=== PATIENT | male | born 1965 | race Caucasian/White ===

== ENCOUNTER 2017-08-20 12:49 | Emergency (ER) | payer SELFPAY ==
[~2017-08-20] VITALS: Ht 185.4 cm; Wt 80.0 kg
[2017-08-20 12:52] VITALS: BP 134/78; PULSE 89; RESP 18; TEMP 98.5; O2SAT 97
[2017-08-20 12:58] VITALS: BP 153/96; PULSE 89; RESP 20; O2SAT 100
[2017-08-20] MEDS ORDERED: SODIUM CHLOR 0.9% 1000 ML INJ 1,000 ML IV SCH (13:06)
[2017-08-20] MEDS ORDERED: PANTOPRAZOLE SODIUM 40 MG VIAL IVP ONE (13:15)
[2017-08-20] MEDS ORDERED: SODIUM CHLORIDE 0.9% FLUSH 10 ML FLUSH IV FLUSH PRN (13:15)
[2017-08-20] MEDS ORDERED: ONDANSETRON HCL 4 MG/2 ML VIAL IVP ONE (13:15)
--- NOTE | 2017-08-20 13:26 | PD ---
HPI Chief Complaint: Cardiac Complaint Time Seen by Provider: 12:55 Travel History International Travel<30 days: No Contact w/Intl Traveler<30days: No Traveled to known affect area: No History of Present Illness HPI 51-year-old male presents to the emergency department for evaluation of epigastric pain. Patient states he had a "lung infection" approximately 5-6 weeks ago. He states that since then, he has had intermittent stomach pain. He states usually will go away within a day or 2. However, this has been ongoing since , 6 days. He states that over the weekend, it was severe. He currently rates a 4/10 and states it is "aching". He states is diffuse, but worse in the epigastric region. He apparently went to a PA before coming here who did an EKG was concerned so he sent the patient to the emergency department. The patient denies any chest pain or shortness of breath to me. He states he does still have a cough from previous "lung infection". He states that time, he was put on an inhaler, steroids, antibiotic. He is not currently using the inhaler. He states it "ball my asthma back". He reports he has no chronic medical problems other than asthma and is currently taking no prescribed medications. She reports nausea and vomited once this weekend. He denies any diarrhea or constipation. No blood in his stool. He had denies any previous abdominal surgery. Severity is moderate. No exacerbating or alleviating symptoms. PFSH Past Medical History Medical History: Denies Significant Hx Diminished Hearing: No Tetanus Vaccination: < 5 Years ?: Not Past Surgical History Other Surgery: Yes (L hand) Social History Alcohol Use: No Tobacco Use: Yes Substance Use: No Allergies-Medications (Allergen,Severity, Reaction): Coded Allergies: meperidine (Verified Allergy, Unknown, 08/20/17) Reported Meds & Prescriptions Reported Meds & Active Scripts Active No Active Prescriptions or Reported Medications Review of Systems Except as stated in HPI: all other systems reviewed are Neg Physical Exam Narrative GENERAL: Well-nourished, well-developed male patient, afebrile. SKIN: Focused skin assessment warm/dry. HEAD: Normocephalic. Atraumatic. EYES: No scleral icterus. No injection or drainage. NECK: Supple, trachea midline. No JVD or lymphadenopathy. CARDIOVASCULAR: Regular rate and rhythm without murmurs, gallops, or rubs. RESPIRATORY: Breath sounds equal bilaterally. No accessory muscle use. Lungs sounds are clear to auscultation. GASTROINTESTINAL: Abdomen soft, and, nondistended. Patient has mild tenderness over the right lower quadrant, left upper quadrant, moderate tenderness over the epigastric region. MUSCULOSKELETAL: No cyanosis, or edema. BACK: Nontender without obvious deformity. No CVA tenderness. Data Data Last Documented VS Vital Signs Date Time Temp Pulse Resp B/P (MAP) Pulse Ox O2 Delivery O2 Flow Rate FiO2 08/20/17 12:58 89 20 153/96 (115) 100 08/20/17 12:52 98.5 Room Air Orders Orders Complete Blood Count With Diff (08/20/17 13:06) Comprehensive Metabolic Panel (08/20/17 13:06) Lipase (08/20/17 13:06) Prothrombin Time / Inr (Pt) (08/20/17 13:06) Act Partial Throm Time (Ptt) (08/20/17 13:06) Urinalysis - C+S If Indicated (08/20/17 13:06) Ct Abd/Pel W Iv Contrast(Rout) (08/20/17 13:06) Iv Access Insert/Monitor (08/20/17 13:06) Ecg Monitoring (08/20/17 13:06) Oximetry (08/20/17 13:06) Ondansetron Inj (Zofran Inj) (08/20/17 13:15) Pantoprazole Inj (Protonix Inj) (08/20/17 13:15) Sodium Chlor 0.9% 1000 Ml Inj (Ns 1000 M (08/20/17 13:06) Sodium Chloride 0.9% Flush (Ns Flush) (08/20/17 13:15) Electrocardiogram (08/20/17 13:06) Chest, Single Ap (08/20/17 13:06) Creatine Kinase (Cpk) (08/20/17 13:06) Troponin I (08/20/17 13:06) Iohexol 350 Inj (Omnipaque 350 Inj) (08/20/17 14:02) Us Testicles W Doppler (08/20/17 ) Mandatory Outpatient Referral (08/20/17 15:19) Labs Laboratory Tests Test 08/20/17 13:20 White Blood Count 10.6 TH/MM3 Red Blood Count 4.62 MIL/MM3 Hemoglobin 14.9 GM/DL Hematocrit 45.1 % Mean Corpuscular Volume 97.8 FL Mean Corpuscular Hemoglobin 32.2 PG Mean Corpuscular Hemoglobin Concent 32.9 % Red Cell Distribution Width 14.1 % Platelet Count 210 TH/MM3 Mean Platelet Volume 8.6 FL Neutrophils (%) (Auto) 78.2 % Lymphocytes (%) (Auto) 7.2 % Monocytes (%) (Auto) 13.9 % Eosinophils (%) (Auto) 0.3 % Basophils (%) (Auto) 0.4 % Neutrophils # (Auto) 8.3 TH/MM3 Lymphocytes # (Auto) 0.8 TH/MM3 Monocytes # (Auto) 1.5 TH/MM3 Eosinophils # (Auto) 0.0 TH/MM3 Basophils # (Auto) 0.0 TH/MM3 CBC Comment DIFF FINAL Differential Comment Prothrombin Time 11.4 SEC Prothromb Time International Ratio 1.0 RATIO Activated Partial Thromboplast Time 30.8 SEC Blood Urea Nitrogen 22 MG/DL Creatinine 1.06 MG/DL Random Glucose 86 MG/DL Total Protein 9.0 GM/DL Albumin 3.6 GM/DL Calcium Level 9.1 MG/DL Alkaline Phosphatase 166 U/L Aspartate Amino Transf (AST/SGOT) 24 U/L Alanine Aminotransferase (ALT/SGPT) 13 U/L Total Bilirubin 0.8 MG/DL Sodium Level 133 MEQ/L Potassium Level 3.9 MEQ/L Chloride Level 99 MEQ/L Carbon Dioxide Level 27.5 MEQ/L Anion Gap 7 MEQ/L Estimat Glomerular Filtration Rate 74 ML/MIN Total Creatine Kinase 60 U/L Troponin I LESS THAN 0.02 NG/ML Lipase 89 U/L [facility] Medical Decision Making Medical Screen Exam Complete: Yes Emergency Medical Condition: Yes Medical Record Reviewed: Yes Interpretation(s) Last Impressions Chest X-Ray 08/20/17 1306 Signed Impressions: Service Date/Time: Sunday, August 20, 2017 13:35 - CONCLUSION: No acute disease. Shiva Tovar MD FACR Abdomen/Pelvis CT 08/20/17 1306 Signed Impressions: Service Date/Time: Sunday, August 20, 2017 13:45 - CONCLUSION: 1. There is extensive retroperitoneal adenopathy. The exam demonstrates a large mat of adenopathy measuring at least 11.4 x 7.2 cm extending from the level of the diaphragmatic crux down to the iliac bifurcation. The examination also demonstrates 2 masses measuring 2.1 and 2.2 cm in the left paracolic gutter. Primary differential considerations include lymphoma versus a testicular carcinoma. The patient's adenopathy would be readily amenable to CT-guided biopsy. 2. Mild prominence of the collecting system in the left kidney. There is likely some degree of ureteral obstruction due to the adenopathy. Quentin Tovar MD Differential Diagnosis Gastritis versus pancreatitis versus ACS versus electrolyte abnormality Narrative Course 51-year-old male presents to the emergency department for evaluation of abdominal pain that is ongoing for 5-6 weeks, but worsened since . Our EKG shows sinus rhythm, heart rate 84, no acute ST changes. CBC, CMP, lipase, CK, troponin, PTT, PT/INR, UA are ordered and pending. Chest x-ray and CT abdomen/pelvis with IV contrast is ordered and pending. CBC shows no acute abnormality. CMP shows elevated alkaline phosphatase 166. Lipase is 89. CK is 60. Troponin is less than 0.02. Coags show no acute abnormality. Chest x-ray shows no acute disease. CT abdomen/pelvis shows there is extensive retroperitoneal adenopathy. The exam demonstrates a large mat of adenopathy measuring at least 11.4 x 7.2 cm extending from the level of the diaphragmatic crux down to the iliac bifurcation. The examination also demonstrates 2 masses measuring 2.1 and 2.2 cm in the left paracolic gutter. Primary differential considerations include lymphoma versus a testicular carcinoma. The patient's adenopathy would be readily amenable to CT-guided biopsy; Mild prominence of the collecting system in the left kidney. There is likely some degree of ureteral obstruction due to the adenopathy. Patient reports no problems urinating. I discussed the CT results with the patient. He states "I just knew that I had cancer. My whole family has of cancer." Us of the testicles are ordered and pending. I discussed with the patient that I wanted to admit him for further evaluation. However, he adamantly declines stating he cannot be admitted or he will become homeless. US testicles shows abnormal left testicle consistent with neoplasm. Mandatory referral was placed for her oncologist. I informed case management will also speak to the patient about financial assistance. Patient was discharged short-term prescription for Lortab for pain. He is to follow up. He is return here for any acute worsening of symptoms. Patient agrees and still declines admission. Diagnosis Primary Impression: Testicular mass Referrals: Dolores Greenberg MD Oncologist call for appointment Patient Instructions: General Instructions, Testicular Cancer (GEN) Additional Instructions: Follow up with oncology. Take Lortab as directed as needed for pain. Caution this can make you drowsy so do not drive after taking Return to the emergency department for any acute, worsening of symptoms. Med/Other Pt SpecificInfo: Prescription(s) given Scripts Hydrocodone-Acetaminophen ([place]) 5 Mg-325 Mg Tab 1 TAB PO Q6H Y for PAIN, #12 TAB 0 Refills Prov: Desirae Damian 08/20/17 Disposition: 01 DISCHARGE HOME Condition: Stable Desirae Damian Aug 20, 2017 13:26
[2017-08-20 13:34] LABS: AUTOMATED NEUTROPHIL # 8.3 TH/MM3 (1.8-7.7); BASOPHIL % 0.4 % (0.0-2.0); EOSINOPHIL % 0.3 % (0.0-4.0); HEMATOCRIT 45.1 % (39.0-51.0); HEMO FLAGS DIFF FINAL; LYMPH % 7.2 % (9.0-44.0); LYMPHOCYTE # 0.8 TH/MM3 (1.0-4.8); MEAN CELL VOLUME 97.8 FL (80.0-100.0); MEAN CORPUSCULAR HEMOGLOBIN 32.2 PG (27.0-34.0); MEAN CORPUSCULAR HGB CONC 32.9 % (32.0-36.0); MONO % 13.9 % (0.0-8.0); NEUT % 78.2 % (16.0-70.0); PLATELET COUNT 210 TH/MM3 (150-450); RED BLOOD COUNT 4.62 MIL/MM3 (4.50-5.90); RED CELL DISTRIBUTION WIDTH 14.1 % (11.6-17.2); WHITE BLOOD COUNT 10.6 TH/MM3 (4.0-11.0)
[2017-08-20 13:48] LABS: APTT (PATIENT) 30.8 SEC (24.3-30.1); PROTHROMBIN TIME - PATIENT 11.4 SEC (9.8-11.6)
--- NOTE | 2017-08-20 13:48 | RADRPT ---
EXAM DATE/TIME: 08/20/2017 13:35 [facility] COMPARISON: No previous studies available for comparison. INDICATIONS : Chest pain today. MEDICAL HISTORY : None. SURGICAL HISTORY : None. ENCOUNTER: Initial ACUITY: 1 day PAIN SCORE: 4/10 LOCATION: Bilateral chest FINDINGS: A single view of the chest demonstrates the lungs to be symmetrically aerated without evidence of mas s, infiltrate or effusion. The cardiomediastinal contours are unremarkable. Osseous structures are intact. CONCLUSION: No acute disease. Shiva Tovar MD FACR on August 20, 2017 at 13:46 Board Certified Radiologist. This report was verified electronically.
[2017-08-20 14:01] LABS: ANION GAP 7 MEQ/L (5-15); AST (GOT) 24 U/L (15-37); BICARBONATE 27.5 MEQ/L (21.0-32.0); BLOOD UREA NITROGEN 22 MG/DL (7-18); CHLORIDE 99 MEQ/L (98-107); GLOMERULAR FILTRATION RATE 74 ML/MIN (>89); POTASSIUM 3.9 MEQ/L (3.5-5.1); SODIUM (NA) 133 MEQ/L (136-145)
[2017-08-20 14:02] LABS: ALT (GPT) 13 U/L (12-78)
[2017-08-20] MEDS ORDERED: IOHEXOL 350 MG/ML 10 ML VIAL (for RAD DIAG) IVCONTRAST ONE (14:02)
[2017-08-20 14:06] LABS: ALKALINE PHOSPHATASE 166 U/L (45-117); TOTAL BILIRUBIN ADULT 0.8 MG/DL (0.2-1.0)
[2017-08-20 14:08] LABS: CREATINE KINASE 60 U/L (39-308)
--- NOTE | 2017-08-20 14:36 | RADRPT ---
EXAM DATE/TIME: 08/20/2017 13:45 [facility] COMPARISON: No previous studies available for comparison. INDICATIONS : Epigastric pain IV CONTRAST: 91 cc Omnipaque 350 (iohexol) IV ORAL CONTRAST: No oral contrast ingested. RADIATION DOSE: 6.64 CTDIvol (mGy) MEDICAL HISTORY : None SURGICAL HISTORY : None. ENCOUNTER: Initial ACUITY: 4 - 6 days PAIN SCALE: 4/10 LOCATION: Abdomen TECHNIQUE: Volumetric scanning of the abdomen and pelvis was performed. Using automated exposure control and ad justment of the mA and/or kV according to patient size, radiation dose was kept as low as reasonably achievable to obtain optimal diagnostic quality images. DICOM format image data is available electro nically for review and comparison. FINDINGS: The limited portion of the lung base visualized is clear. The appearance of the liver, spleen, pancreas and adrenal glands is within normal limits. There is mild prominence of the collecting system of the left kidney. There is likely some degree of ureteral obstruction due to the extensive adenopathy. The right kidney is unremarkable in appearance. The examination demonstrates extensive retroperitoneal adenopathy extending from the level of the virgil phragmatic pleura all the way down to the iliac bifurcation. Findings are consistent with malignancy. Primary differential consideration would include lymphoma versus a testicular carcinoma. The retrope ritoneal mass would be readily amenable to CT-guided biopsy. The examination also demonstrates 2 smal l mass lesions in the left paracolic gutter. These measure 2.1 cm and 2.2 cm respectively. The visualized loops of small and large bowel are unremarkable. There is no free fluid within the pel vis. No significant iliac or inguinal adenopathy is present. The visualized bony structures are intact. CONCLUSION: 1. There is extensive retroperitoneal adenopathy. The exam demonstrates a large mat of adenopathy camacho suring at least 11.4 x 7.2 cm extending from the level of the diaphragmatic crux down to the iliac bi furcation. The examination also demonstrates 2 masses measuring 2.1 and 2.2 cm in the left paracolic gutter. Primary differential considerations include lymphoma versus a testicular carcinoma. The patie nt's adenopathy would be readily amenable to CT-guided biopsy. 2. Mild prominence of the collecting system in the left kidney. There is likely some degree of ureter al obstruction due to the adenopathy. Quentin Tovar MD on August 20, 2017 at 14:26 Board Certified Radiologist. This report was verified electronically.
--- NOTE | 2017-08-20 15:20 | PD ---
Data Data Last Documented VS Vital Signs Date Time Temp Pulse Resp B/P (MAP) Pulse Ox O2 Delivery O2 Flow Rate FiO2 08/20/17 17:21 08/20/17 12:58 89 20 100 08/20/17 12:52 98.5 Room Air Orders Orders Complete Blood Count With Diff (08/20/17 13:06) Comprehensive Metabolic Panel (08/20/17 13:06) Lipase (08/20/17 13:06) Prothrombin Time / Inr (Pt) (08/20/17 13:06) Act Partial Throm Time (Ptt) (08/20/17 13:06) Ct Abd/Pel W Iv Contrast(Rout) (08/20/17 13:06) Iv Access Insert/Monitor (08/20/17 13:06) Ecg Monitoring (08/20/17 13:06) Oximetry (08/20/17 13:06) Ondansetron Inj (Zofran Inj) (08/20/17 13:15) Pantoprazole Inj (Protonix Inj) (08/20/17 13:15) Sodium Chlor 0.9% 1000 Ml Inj (Ns 1000 M (08/20/17 13:06) Sodium Chloride 0.9% Flush (Ns Flush) (08/20/17 13:15) Electrocardiogram (08/20/17 13:06) Chest, Single Ap (08/20/17 13:06) Creatine Kinase (Cpk) (08/20/17 13:06) Troponin I (08/20/17 13:06) Iohexol 350 Inj (Omnipaque 350 Inj) (08/20/17 14:02) Us Testicles W Doppler (08/20/17 ) Mandatory Outpatient Referral (08/20/17 15:19) Ed Discharge Order (08/20/17 16:34) Radiology Film Requests (08/20/17 ) Labs Laboratory Tests Test 08/20/17 13:20 White Blood Count 10.6 TH/MM3 Red Blood Count 4.62 MIL/MM3 Hemoglobin 14.9 GM/DL Hematocrit 45.1 % Mean Corpuscular Volume 97.8 FL Mean Corpuscular Hemoglobin 32.2 PG Mean Corpuscular Hemoglobin Concent 32.9 % Red Cell Distribution Width 14.1 % Platelet Count 210 TH/MM3 Mean Platelet Volume 8.6 FL Neutrophils (%) (Auto) 78.2 % Lymphocytes (%) (Auto) 7.2 % Monocytes (%) (Auto) 13.9 % Eosinophils (%) (Auto) 0.3 % Basophils (%) (Auto) 0.4 % Neutrophils # (Auto) 8.3 TH/MM3 Lymphocytes # (Auto) 0.8 TH/MM3 Monocytes # (Auto) 1.5 TH/MM3 Eosinophils # (Auto) 0.0 TH/MM3 Basophils # (Auto) 0.0 TH/MM3 CBC Comment DIFF FINAL Differential Comment Prothrombin Time 11.4 SEC Prothromb Time International Ratio 1.0 RATIO Activated Partial Thromboplast Time 30.8 SEC Blood Urea Nitrogen 22 MG/DL Creatinine 1.06 MG/DL Random Glucose 86 MG/DL Total Protein 9.0 GM/DL Albumin 3.6 GM/DL Calcium Level 9.1 MG/DL Alkaline Phosphatase 166 U/L Aspartate Amino Transf (AST/SGOT) 24 U/L Alanine Aminotransferase (ALT/SGPT) 13 U/L Total Bilirubin 0.8 MG/DL Sodium Level 133 MEQ/L Potassium Level 3.9 MEQ/L Chloride Level 99 MEQ/L Carbon Dioxide Level 27.5 MEQ/L Anion Gap 7 MEQ/L Estimat Glomerular Filtration Rate 74 ML/MIN Total Creatine Kinase 60 U/L Troponin I LESS THAN 0.02 NG/ML Lipase 89 U/L MDM Supervised Visit with JAY JAY: Yes Narrative Course I, Dr. Watson, have reviewed the advance practice practitioner's documentation and am in agreement, met with the patient face to face, made the diagnosis, and the medical decision making was done by me. *My assessment and Findings: Patient was seen and examined by me in addition to Desirae GASTELUM, this patient was sent over for epigastric/chest pain with abnormal EKG. He was found to have pain but needs the diaphragm and a CAT scan of his abdomen showed multiple lymph nodes consistent with metastatic disease. The possibility was of testicular cancer according according to radiology. He was examined by me and found to have a a baseball sized testicular mass on the left side. When asked about the patient states he's had testicular mass since his mid 20s. Explained to the patient that he likely has testicular cancer with metastatic disease. He was offered admission to the hospital but states he needs to go home to work. We have placed mandatory referral to oncology and placed him in patient assistance. He was urged to keep follow-up at his earliest convenience to initiate therapy. He is stable for discharge otherwise. Scripts Hydrocodone-Acetaminophen ([place]) 5 Mg-325 Mg Tab 1 TAB PO Q6H Y for PAIN, #12 TAB 0 Refills Prov: Desirae Damian 08/20/17 Condition: Stable Hebert Watson MD Aug 20, 2017 15:20
--- NOTE | 2017-08-20 16:23 | RADRPT ---
EXAM DATE/TIME: 08/20/2017 15:35 [facility] COMPARISON: CT ABDOMEN & PELVIS W CONTRAST, August 20, 2017, 13:45. INDICATIONS : Testicle pain. MEDICAL HISTORY : Testicle pain. SURGICAL HISTORY : Left hand surgery. ENCOUNTER: Initial ACUITY: 1 day PAIN SCORE: 4/10 LOCATION: Bilateral testicles. MEASUREMENTS: RIGHT TESTICLE: 3.3 x 2.8 x 5.0cm LEFT TESTICLE: 4.9 x 3.4 x 4.8cm FINDINGS: RIGHT TESTICLE: The right testicle appears normal with normal blood flow. LEFT TESTICLE: The left testicle is abnormal with microlithiasis and very heterogeneous. There is hyperemia in the left testicle. The left testicle is enlarged. Bifid be consistent with neoplasm. SCROTUM: Within normal limits. CONCLUSION: Abnormal left testicle consistent with neoplasm. Shiva Tovar MD FACR on August 20, 2017 at 16:08 Board Certified Radiologist. This report was verified electronically.
[2017-08-20] MEDS ORDERED: NORC5TAB PO (16:31)
--- NOTE | 2017-08-21 16:09 | EKG ---
Date Performed: 08/20/2017 Time Performed: 13:02:35 PTAGE: 51 years EKG: Sinus rhythm POSSIBLE LEFT ATRIAL ENLARGEMENT INCOMPLETE RIGHT BUNDLE BRANCH BLOCK BORDERLINE ECG INTERPRETATION BASED ON A DEFAULT AGE OF 42 YEARS NO PREVIOUS TRACING DOCTOR: Elena Workman Interpretating Date/Time 08/21/2017 16:05:53
== END 2017-08-20 17:25 | disposition home or self-care (01) ==
LOC: NEPE 12:49
DX: D40.12 Neoplasm of uncertain behavior of left testis (principal); R59.0 Localized enlarged lymph nodes; R07.9 Chest pain, unspecified; R94.31 Abnormal electrocardiogram [ECG] [EKG]; J45.909 Unspecified asthma, uncomplicated; Z72.0 Tobacco use
CPT/HCPCS: 71010; 74177; 76870; 80053; 82550; 83690; 84484; 85025; 85610; 85730; 93005; 93975; 96361; 96374; 96375; 99285; C9113; J2405; J7030; Q9967

== ENCOUNTER 2017-09-10 10:32 | Emergency (ER) | payer OTHER ==
[~2017-09-10 10:32] MED LIST: NORC5TAB PO
[2017-09-10] MEDS ORDERED: IOHEXOL 350 MG/ML 10 ML VIAL (for RAD DIAG) IVCONTRAST ONE (10:33)
[2017-09-10 10:34] VITALS: BP 146/78; PULSE 93; RESP 16; TEMP 98.1; O2SAT 98
[2017-09-10 11:42] LABS: AUTOMATED NEUTROPHIL # 4.4 TH/MM3 (1.8-7.7); BASOPHIL % 0.6 % (0.0-2.0); EOSINOPHIL # 0.4 TH/MM3 (0-0.4); EOSINOPHIL % 5.9 % (0.0-4.0); HEMATOCRIT 38.1 % (39.0-51.0); HEMO FLAGS DIFF FINAL; LYMPH % 12.8 % (9.0-44.0); LYMPHOCYTE # 0.8 TH/MM3 (1.0-4.8); MEAN CELL VOLUME 96.3 FL (80.0-100.0); MEAN CORPUSCULAR HEMOGLOBIN 32.3 PG (27.0-34.0); MEAN CORPUSCULAR HGB CONC 33.6 % (32.0-36.0); MONO % 11.3 % (0.0-8.0); NEUT % 69.4 % (16.0-70.0); PLATELET COUNT 248 TH/MM3 (150-450); RED BLOOD COUNT 3.96 MIL/MM3 (4.50-5.90); RED CELL DISTRIBUTION WIDTH 14.1 % (11.6-17.2); WHITE BLOOD COUNT 6.3 TH/MM3 (4.0-11.0)
[2017-09-10 11:56] LABS: APTT (PATIENT) 28.9 SEC (24.3-30.1); PROTHROMBIN TIME - PATIENT 10.6 SEC (9.8-11.6)
--- NOTE | 2017-09-10 11:56 | PD ---
HPI Chief Complaint: Respiratory Symptoms Time Seen by Provider: 11:51 Travel History International Travel<30 days: No Contact w/Intl Traveler<30days: No Traveled to known affect area: No History of Present Illness HPI 52-year-old male with recent diagnosis of testicular cancer with metastases to the abdomen, presents to the ER today because he is having shortness of breath for several weeks, is concerned because he has not been able to get connected to an oncologist. He states he's been having subjective fevers. He denies any vomiting, diarrhea, or other symptoms. Modifying Factors: None Associated Signs & Symptoms: Shortness of breath for several weeks Risk Factors: Recent diagnosis of testicular cancer with metastases to the abdomen PFSH Past Medical History Cancer: Yes (TESTICULAR WITH METS) Diminished Hearing: No Respiratory: Yes (ASTHMA) Past Surgical History Other Surgery: Yes (L hand) Social History Alcohol Use: No Tobacco Use: Yes Substance Use: No Allergies-Medications (Allergen,Severity, Reaction): Coded Allergies: meperidine (Verified Allergy, Unknown, 09/10/17) Reported Meds & Prescriptions Reported Meds & Active Scripts Active [place] (Hydrocodone-Acetaminophen) 5 Mg-325 Mg Tab 1 Tab PO Q6H PRN Review of Systems Except as stated in HPI: all other systems reviewed are Neg Physical Exam Narrative GENERAL: Well-developed middle age white male patient currently in mild distress. Awake and oriented 3. SKIN: Focused skin assessment warm/dry. HEAD: Atraumatic. Normocephalic. EYES: Pupils equal and round. No scleral icterus. No injection or drainage. ENT: No nasal bleeding or discharge. Mucous membranes pink and moist. NECK: Trachea midline. No JVD. CARDIOVASCULAR: Regular rate and rhythm. No murmur appreciated. RESPIRATORY: No accessory muscle use. Mild wheezing throughout bilaterally. Breath sounds equal bilaterally. GASTROINTESTINAL: Abdomen soft, non-tender, nondistended. Hepatic and splenic margins not palpable. MUSCULOSKELETAL: No obvious deformities. No clubbing. No cyanosis. No edema. NEUROLOGICAL: Awake and alert. No obvious cranial nerve deficits. Motor grossly within normal limits. Normal speech. PSYCHIATRIC: Appropriate mood and affect; insight and judgment normal. Data Data Last Documented VS Vital Signs Date Time Temp Pulse Resp B/P (MAP) Pulse Ox O2 Delivery O2 Flow Rate FiO2 09/10/17 14:15 78 21 131/90 (104) 94 Room Air 09/10/17 10:34 98.1 Orders Orders Complete Blood Count With Diff (09/10/17 11:10) Comprehensive Metabolic Panel (09/10/17 11:10) Basic Metabolic Panel (Bmp) (09/10/17 11:10) Act Partial Throm Time (Ptt) (09/10/17 11:10) Prothrombin Time / Inr (Pt) (09/10/17 11:10) Electrocardiogram (09/10/17 11:10) Chest, Pa & Lat (09/10/17 11:10) Lactic Acid Sepsis Protocol (09/10/17 11:45) Blood Culture (09/10/17 11:45) Methylprednisolone So Succ Inj (Solumedr (09/10/17 12:45) Albuterol-Ipratropium Neb (Duoneb Neb) (09/10/17 12:45) Ct Pulmonary Angiogram (09/10/17 13:01) Iohexol 350 Inj (Omnipaque 350 Inj) (09/10/17 10:33) Acetamin-Hydrocod 325-5 Mg ([place] 5-325 (09/10/17 16:00) Ed Discharge Order (09/10/17 15:58) Labs Laboratory Tests Test 09/10/17 11:30 09/10/17 11:50 White Blood Count 6.3 TH/MM3 Red Blood Count 3.96 MIL/MM3 Hemoglobin 12.8 GM/DL Hematocrit 38.1 % Mean Corpuscular Volume 96.3 FL Mean Corpuscular Hemoglobin 32.3 PG Mean Corpuscular Hemoglobin Concent 33.6 % Red Cell Distribution Width 14.1 % Platelet Count 248 TH/MM3 Mean Platelet Volume 8.2 FL Neutrophils (%) (Auto) 69.4 % Lymphocytes (%) (Auto) 12.8 % Monocytes (%) (Auto) 11.3 % Eosinophils (%) (Auto) 5.9 % Basophils (%) (Auto) 0.6 % Neutrophils # (Auto) 4.4 TH/MM3 Lymphocytes # (Auto) 0.8 TH/MM3 Monocytes # (Auto) 0.7 TH/MM3 Eosinophils # (Auto) 0.4 TH/MM3 Basophils # (Auto) 0.0 TH/MM3 CBC Comment DIFF FINAL Differential Comment Prothrombin Time 10.6 SEC Prothromb Time International Ratio 1.0 RATIO Activated Partial Thromboplast Time 28.9 SEC Blood Urea Nitrogen 16 MG/DL Creatinine 0.93 MG/DL Random Glucose 78 MG/DL Total Protein 7.9 GM/DL Albumin 3.4 GM/DL Calcium Level 8.9 MG/DL Alkaline Phosphatase 139 U/L Aspartate Amino Transf (AST/SGOT) 16 U/L Alanine Aminotransferase (ALT/SGPT) 11 U/L Total Bilirubin 0.4 MG/DL Sodium Level 139 MEQ/L Potassium Level 4.0 MEQ/L Chloride Level 107 MEQ/L Carbon Dioxide Level 28.3 MEQ/L Anion Gap 4 MEQ/L Estimat Glomerular Filtration Rate 86 ML/MIN Lactic Acid Level 1.0 mmol/L MDM Medical Decision Making Medical Screen Exam Complete: Yes Emergency Medical Condition: Yes Medical Record Reviewed: Yes Interpretation(s) Laboratory Tests Test 09/10/17 11:30 09/10/17 11:50 Red Blood Count 3.96 MIL/MM3 (4.50-5.90) Hemoglobin 12.8 GM/DL (13.0-17.0) Hematocrit 38.1 % (39.0-51.0) Monocytes (%) (Auto) 11.3 % (0.0-8.0) Eosinophils (%) (Auto) 5.9 % (0.0-4.0) Lymphocytes # (Auto) 0.8 TH/MM3 (1.0-4.8) Alkaline Phosphatase 139 U/L (45-117) Alanine Aminotransferase (ALT/SGPT) 11 U/L (12-78) Anion Gap 4 MEQ/L (5-15) Estimat Glomerular Filtration Rate 86 ML/MIN (>89) Last 24 hours Impressions Chest X-Ray 09/10/17 1110 Signed Impressions: Service Date/Time: Sunday, September 10, 2017 12:26 - CONCLUSION: No acute disease. Prashant Wagner MD Differential Diagnosis Bronchitis versus pneumonia versus pulmonary mass versus PE Narrative Course Chest x-ray did not show any signs of obvious acute pulmonary processes. Patient was given some Medrol and nebulizers in the ER. Symptoms are improved, saturations are stable in the ER. CAT scan was done for further evaluation, did not show PE but does show a right pulmonary nodule, in the current setting concerning for metastases as well. At this point, patient needs further follow- up from oncology. He is in the process of getting evaluated for medical assistance. My plan would be to put in a mandatory consult on-call G4 him. Case management has also been asked to talk to the patient regarding obtaining further follow-up. He is given further treatment for his respiratory issues. Return for worsening in symptoms as needed. The plan has been discussed with him and he states understanding. Diagnosis Primary Impression: Pulmonary nodule Additional Impression: Testicular mass Referrals: Varsha Slater MD Additional Instructions: He needs to follow up with an oncologist regarding ongoing process. Return for any worsening in pain, fevers, shortness of breath, or new symptoms as needed. Med/Other Pt SpecificInfo: Prescription(s) given Scripts Albuterol 6.7 GM Inh (Proventil Hfa 6.7 GM Inh) 90 Mcg/Act Aer 2 PUFF INH Q4-6H Y for SHORTNESS OF BREATH, #1 INHALER 0 Refills Prov: Angeline Uriostegui MD 09/10/17 Prednisone (Prednisone) 50 Mg Tab 50 MG PO DAILY for 5 Days, #5 TAB 0 Refills Prov: Angeline Uriostegui MD 09/10/17 Disposition: 01 DISCHARGE HOME Condition: Stable Angeline Uriostegui MD Sep 10, 2017 11:56
[2017-09-10 11:57] LABS: ALT (GPT) 11 U/L (12-78); ANION GAP 4 MEQ/L (5-15); AST (GOT) 16 U/L (15-37); BICARBONATE 28.3 MEQ/L (21.0-32.0); BLOOD UREA NITROGEN 16 MG/DL (7-18); CHLORIDE 107 MEQ/L (98-107); GLOMERULAR FILTRATION RATE 86 ML/MIN (>89); SODIUM (NA) 139 MEQ/L (136-145)
[2017-09-10 12:00] LABS: ALKALINE PHOSPHATASE 139 U/L (45-117); TOTAL BILIRUBIN ADULT 0.4 MG/DL (0.2-1.0)
[2017-09-10] MEDS ORDERED: methylPREDNISolone SOD SUCC 125 MG/2 ML VIAL IV PUSH ONE (12:45)
[2017-09-10] MEDS: RESP: ALBUTEROL 2.5 MG/IPRATROPIUM 0.5 MG NEB (SCH) INH (12:47)
--- NOTE | 2017-09-10 12:58 | RADRPT ---
EXAM DATE/TIME: 09/10/2017 12:26 [facility] COMPARISON: No previous studies available for comparison. INDICATIONS : Short of breath and cough for 1 month. MEDICAL HISTORY : Asthma. Testicular with metastasis. SURGICAL HISTORY : None. ENCOUNTER: Initial ACUITY: 1 month PAIN SCORE: 2/10 LOCATION: Bilateral chest FINDINGS: PA and lateral views of the chest demonstrate the lungs to be symmetrically aerated without evidence of mass, infiltrate or effusion. The cardiomediastinal contours are unremarkable. Osseous structure s are intact. CONCLUSION: No acute disease. Prashant Wagner MD on September 10, 2017 at 12:56 Board Certified Radiologist. This report was verified electronically.
[2017-09-10 13:00] VITALS: BP 156/87; PULSE 81; RESP 19; O2SAT 95
[2017-09-10 14:15] VITALS: BP 131/90; PULSE 78; RESP 21; O2SAT 94
--- NOTE | 2017-09-10 15:51 | RADRPT ---
EXAM DATE/TIME: 09/10/2017 15:17 [facility] COMPARISON: No previous studies available for comparison. INDICATIONS : Chest pain and dyspnea IV CONTRAST: 80 cc Omnipaque 350 (iohexol) IV RADIATION DOSE: 11.65 CTDIvol (mGy) MEDICAL HISTORY : Carcinoma, testicular. Metastatic, lung. SURGICAL HISTORY : None. ENCOUNTER: Initial ACUITY: 1 day PAIN SCALE: 8/10 LOCATION: chest TECHNIQUE: Volumetric scanning of the chest was performed using a pulmonary embolism protocol MIP images were re constructed. Using automated exposure control and adjustment of the mA and/or kV according to patien t size, radiation dose was kept as low as reasonably achievable to obtain optimal diagnostic quality images. DICOM format image data is available electronically for review and comparison. Follow-up recommendations for detected pulmonary nodules are based at a minimum on nodule size and pa tient risk factors according to Fleischner Society Guidelines. FINDINGS: Examination of the pulmonary vasculature demonstrates good filling of the main, lobar and segmental b ranches. There are no filling defects to suggest pulmonary embolism. Multiplanar reconstructions are also unremarkable. There is a 1-2 mm nodule in the right middle lobe nonspecific in appearance. No pleural effusions are identified. No other nodules are identified CONCLUSION: 1. No evidence of pulmonary embolism. 2. 2 mm nodule right middle lobe Mina Price MD on September 10, 2017 at 15:46 Board Certified Radiologist. This report was verified electronically.
[2017-09-10] MEDS ORDERED: ACETAMINOPHEN/HYDROcodone 325 MG/5 MG TAB PO ONE (16:00)
[2017-09-10] MEDS ORDERED: PRED50 PO (16:04)
[2017-09-10] MEDS ORDERED: ALBU6.7H INH (16:04)
--- NOTE | 2017-09-11 10:27 | EKG ---
Date Performed: 09/10/2017 Time Performed: 11:18:31 PTAGE: 52 years EKG: Sinus rhythm INCOMPLETE RIGHT BUNDLE BRANCH BLOCK BORDERLINE ECG Compared to prior tracing no significant change DOCTOR: Moshe Hurley Interpretating Date/Time 09/11/2017 10:25:46
== END 2017-09-10 16:31 | disposition home or self-care (01) ==
LOC: NEPE 10:32
DX: C62.90 Malignant neoplasm of unspecified testis, unspecified whether descended or undescended (principal); C79.89 Secondary malignant neoplasm of other specified sites; R91.1 Solitary pulmonary nodule; Z72.0 Tobacco use
CPT/HCPCS: 71020; 71275; 80053; 83605; 85025; 85610; 85730; 87040; 93005; 94640; 94664; 96374; 99285; J2930; Q9967

== ENCOUNTER 2017-09-25 07:02 | Day surgery (SDC) | payer OTHER ==
[~2017-09-25] VITALS: Ht 185.4 cm; Wt 86.4 kg
[~2017-09-25 07:02] MED LIST changes: +ALBU6.7H INH; +PRED50 PO
[2017-09-25 07:43] VITALS: BP 141/88; PULSE 79; RESP 20; TEMP 98.2; O2SAT 96
[2017-09-25] MEDS ORDERED: SODIUM CHLORIDE 2 ML FLUSH PRN IV FLUSH (07:45)
[2017-09-25] MEDS ORDERED: SODIUM CHLOR 0.9% 1000 ML IV SCH (07:45)
[2017-09-25] MEDS ORDERED: SODIUM CHLORIDE 2 ML FLUSH BID IV FLUSH SCH (09:00)
[2017-09-25] MEDS ORDERED: LIDOCAINE HCL 1% 20 ML VIAL ONE (09:11)
[2017-09-25] MEDS ORDERED: MIDAZOLAM HCL 2 MG/2 ML VIAL ONE (09:19)
--- NOTE | 2017-09-25 10:09 | PD.RAD ---
Post CT Procedure Prog Note Pre Procedure Diagnosis: (1) Retroperitoneal lymphadenopathy Post Procedure Diagnosis: (1) Retroperitoneal lymphadenopathy Procedure Date: Sep 25, 2017 Supervising Radiologist: David Petty JR Anesthesia: Conscious Sedation Plan of Activity Patient to Unit: ROPU Patient Condition: Good See PACS Report for procedural detail/treatment Biopsy Imaging Guidance: CT Side: Left Biopsy Procedure: Lymph Node Specimen: Core Biopsy Findings: 4 core specimens of the left retroperitoneal adenopathy performed. No hemorrhage on post CT. Samples in formalin and RPMI Jr. Petty Thomas Justin MD Sep 25, 2017 10:09
[2017-09-25 10:20] VITALS: BP 145/89; PULSE 75; RESP 20; TEMP 98.1; O2SAT 95
[2017-09-25 10:35] VITALS: BP 162/95; PULSE 85; RESP 16; O2SAT 95
--- NOTE | 2017-09-25 10:42 | RADRPT ---
EXAM DATE/TIME: 09/25/2017 09:41 [facility] COMPARISON: No previous studies available for comparison. INDICATIONS : Retroperitoneal mass SEDATION TIME: 20 minutes BIOPSY SITE: retroperitoneum MEDICATION(S): 1.) 4 mg midazolam (Versed) IV 2.) 200 mcg fentanyl (Sublimaze) IV DEVICE(S): 1.) 17 gauge introducer 2.) 18 gauge Bone marrow biopsy needle MEDICAL HISTORY : None. SURGICAL HISTORY : None. ENCOUNTER: Initial ACUITY: 1 day PAIN SCORE: 10/10 LOCATION: Left abdomen A total of five core specimen(s) were obtained and sent to the laboratory for pathologic evaluation. PROCEDURE: 1. CT guided retroperitoneum biopsy. 2. Conscious sedation with continuous EKG and oximetry monitoring. Prior to the procedure informed consent was obtained. Any appropriate prior imaging studies were rev iewed. Using automated exposure control and adjustment of the mA and/or kV according to patient size, radiat ion dose was kept as low as reasonably achievable to obtain optimal diagnostic quality images. DICOM format image data is available electronically for review and comparison. The site was prepped in a sterile fashion. Full sterile technique was used, including cap, mask, luisito rile gloves and gown and a large sterile sheet. Hand hygiene and 2% chlorhexidine and/or betadine/al cohol prep was utilized per protocol for cutaneous antisepsis. The skin and subcutaneous tissues wer e infiltrated with local anesthetic solution. With CT guidance the previously identified target was localized. Biopsy was performed using the presc ribed needle as above. Adequate hemostasis was obtained with compression at the puncture site. Follow-up CT scan reveals no hemorrhage. The patient tolerated the procedure well and there were no complications. The patient was returned to the Radiology Outpatient Unit in stable condition. CONCLUSION: Uncomplicated CT guided biopsy of retroperitoneal lymphadenopathy via left-sided approach. David Petty Jr., MD on September 25, 2017 at 10:37 Board Certified Radiologist. This report was verified electronically.
[2017-09-25] MEDS ORDERED: oxyCODONE/ACETAMINOPHEN 5 MG/325 MG TAB PO PRN (11:00)
[2017-09-25 11:05] VITALS: BP 146/80; PULSE 85; RESP 18; O2SAT 94
[2017-09-25 11:35] VITALS: BP 142/85; PULSE 82; RESP 16; O2SAT 95
== END 2017-09-25 11:54 | disposition home or self-care (01) ==
LOC: HRAD 07:02 → HRIP 07:05 → HRAD 11:54
PROVIDERS: ATTEND Internal Medicine Hematology & Oncology
DX: R59.0 Localized enlarged lymph nodes (principal); C62.90 Malignant neoplasm of unspecified testis, unspecified whether descended or undescended; C79.89 Secondary malignant neoplasm of other specified sites
CPT/HCPCS: 49180; 77012; 88184; 88185; 88305; 99152; 99153; J2250; J3010

== ENCOUNTER 2017-10-02 13:42 | Observation (INO) | payer OTHER ==
[~2017-10-02 13:42] MED LIST changes: -PRED50 PO
[2017-10-02 14:53] VITALS: BP 97/62; PULSE 88; RESP 14; TEMP 98.7; O2SAT 95
[2017-10-02] MEDS ORDERED: MAGNESIUM HYDROXIDE SUSP 30 ML CUP PO PRN (15:00)
[2017-10-02] MEDS ORDERED: RESP: ALBUTEROL 2.5 MG/IPRATROPIUM 0.5 MG NEB (PRN) NEB (15:00)
[2017-10-02] MEDS ORDERED: NALOXONE HCL 0.4 MG/ML AMP IV PUSH PRN (15:00)
[2017-10-02] MEDS ORDERED: ONDANSETRON HCL 4 MG/2 ML VIAL IVP PRN (15:00)
[2017-10-02] MEDS ORDERED: ACETAMINOPHEN/HYDROcodone 325 MG/5 MG TAB PO PRN (15:00)
[2017-10-02] MEDS ORDERED: TEMAZEPAM 15 MG CAP PO PRN (15:00)
[2017-10-02] MEDS ORDERED: ACETAMINOPHEN/HYDROcodone 325 MG/7.5 MG TAB PO PRN (15:00)
[2017-10-02] MEDS ORDERED: SODIUM CHLORIDE 0.9% FLUSH 10 ML FLUSH IV FLUSH PRN (15:00)
[2017-10-02] MEDS ORDERED: ACETAMINOPHEN 325 MG TAB PO PRN ×2 (15:00)
[2017-10-02] MEDS ORDERED: HYDROmorphone HCL 2 MG TAB PO PRN (16:30)
--- NOTE | 2017-10-02 16:35 | PD.CONS ---
[facility] By [facility] Reason for Consult Medical management Primary Care Physician Unknown Diagnoses: History of Present Illness 52 year-old female with a history of asthma, recently diagnosed with left testicular mass who initially presented to the emergency department on for evaluation of epigastric and intermittent abdominal pain, had ultrasounds for finding of testicular abnormality consistent with neoplasm and follow-up CT abdomen and pelvis with extensive retroperitoneal adenopathy for which patient was referred to medical oncology. A follow-up CT chest revealed presence of 2 mm nodule in the right middle lobes. Patient states, in late May he started having abdominal pain described as stabbing and not relieved with any medication which did progress to his back as well as testicular regions. A CT-guided biopsy was performed 09/25/17. Patient was seen today in the [facility] and the plan has been made to repeat CT-guided biopsy tomorrow . Is currently complaining of 9 out of 10 pain intensity testicular region however denies any gross hematuria or penile discharge Review of Systems Except as stated in HPI: all other systems reviewed are Neg Past Family Social History Allergies: Coded Allergies: meperidine (Verified Allergy, Unknown, 09/25/17) Past Medical History Asthma Tobacco abuse Past Surgical History Left hand and wrist surgery Reported Medications DuoNeb [place] Family History Father from complication of sarcoma Mother from complication metastasis of breast cancer One maternal aunt has metastasis melanoma Social History Patient smokes one pack per day denies any alcohol or easy drug intake. Physical Exam Vital Signs Vital Signs Date Time Temp Pulse Resp B/P (MAP) Pulse Ox O2 Delivery O2 Flow Rate FiO2 10/02/17 14:53 98.7 88 14 97/62 (74) 95 Physical Exam GENERAL: This is a well-nourished, well-developed patient, in no apparent distress. SKIN: No rashes, ecchymoses or lesions. Cool and dry. HEAD: Atraumatic. Normocephalic. No temporal or scalp tenderness. EYES: Pupils equal round and reactive. Extraocular motions intact. No scleral icterus. No injection or drainage. ENT: Nose without bleeding, purulent drainage or septal hematoma. Throat without erythema, tonsillar hypertrophy or exudate. Uvula midline. Airway patent. NECK: Trachea midline. No JVD or lymphadenopathy. Supple, nontender, no meningeal signs. CARDIOVASCULAR: Regular rate and rhythm without murmurs, gallops, or rubs. RESPIRATORY: Clear to auscultation. Breath sounds equal bilaterally. No wheezes , rales, or rhonchi. GASTROINTESTINAL: Abdomen soft, non-tender, nondistended. No hepato-splenomegaly , or palpable masses. No guarding. MUSCULOSKELETAL: Extremities without clubbing, cyanosis, or edema. No joint tenderness, effusion, or edema noted. No calf tenderness. Negative Homans sign bilaterally. NEUROLOGICAL: Awake and alert. Cranial nerves II through XII intact. Motor and sensory grossly within normal limits. Five out of 5 muscle strength in all muscle groups. Normal speech. Assessment and Plan Assessment and Plan 52-year-old man with Suspected metastasis testicular cancer Although patient had a CT-guided biopsy 09/25/17, plan is to repeat CT- guided biopsy again tomorrow 10/03/17 Management per medical oncology Cancer pain Pain management accordingly Tobacco abuse Tobacco cessation counseling provided Nicotine patch History of asthma No exacerbation DuoNeb when necessary DVT prophylaxis: Patient ambulatory For this consultation Code Status Full code Discussed Condition With Patient, Slava Lynch MD Oct 02, 2017 16:35
[2017-10-02] MEDS: ACETAMINOPHEN/HYDROcodone 325 MG/10 MG TAB PO PRN ×2 (17:15→21:28)
[2017-10-02] MEDS: NICOTINE 21 MG/24 HR PATCH T-DERMAL SCH (19:16)
[2017-10-02 20:00] VITALS: BP_SYST 114; BP_SYST 115; BP_DIAS 57; BP_DIAS 73; PULSE 104; PULSE 75; RESP 18; RESP 20; TEMP 99; TEMP 99.5; O2SAT 100; O2SAT 94
[2017-10-02] MEDS: SODIUM CHLORIDE 0.9% FLUSH 10 ML FLUSH IV FLUSH SCH (21:00)
[2017-10-02] MEDS ORDERED: REMOVE OLD PATCH T-DERMAL SCH (21:00)
[2017-10-03] VITALS (11 sets, daily range): BP systolic 116–140; BP diastolic 70–93; PULSE 70–80; RESP 18–20; TEMP 97.6–98.6; O2SAT 92–97
[2017-10-03] MEDS: ACETAMINOPHEN/HYDROcodone 325 MG/10 MG TAB PO PRN ×3 (05:23→14:19)
[2017-10-03 06:35] LABS: AUTOMATED NEUTROPHIL # 2.7 TH/MM3 (1.8-7.7); BASOPHIL % 0.9 % (0.0-2.0); EOSINOPHIL # 0.5 TH/MM3 (0-0.4); EOSINOPHIL % 10.2 % (0.0-4.0); HEMATOCRIT 37.4 % (39.0-51.0); HEMOGLOBIN 12.4 GM/DL (13.0-17.0); LYMPH % 18.2 % (9.0-44.0); LYMPHOCYTE # 0.9 TH/MM3 (1.0-4.8); MEAN CELL VOLUME 95.6 FL (80.0-100.0); MEAN CORPUSCULAR HEMOGLOBIN 31.7 PG (27.0-34.0); MEAN CORPUSCULAR HGB CONC 33.1 % (32.0-36.0); MEAN PLATELET VOLUME 8.1 FL (7.0-11.0); MONO % 14.9 % (0.0-8.0); MONOCYTE # 0.7 TH/MM3 (0-0.9); NEUT % 55.8 % (16.0-70.0); PLATELET COUNT 257 TH/MM3 (150-450); RED BLOOD COUNT 3.92 MIL/MM3 (4.50-5.90); RED CELL DISTRIBUTION WIDTH 14.1 % (11.6-17.2); WHITE BLOOD COUNT 4.8 TH/MM3 (4.0-11.0)
[2017-10-03 07:26] LABS: ALBUMIN 3.1 GM/DL (3.4-5.0); ALT (GPT) 13 U/L (12-78); AST (GOT) 15 U/L (15-37); BICARBONATE 26.6 MEQ/L (21.0-32.0); BLOOD UREA NITROGEN 24 MG/DL (7-18); CALCIUM 9.1 MG/DL (8.5-10.1); CHLORIDE 105 MEQ/L (98-107); CREATININE 0.94 MG/DL (0.60-1.30); GLOMERULAR FILTRATION RATE 85 ML/MIN (>89); GLUCOSE,RANDOM 80 MG/DL (74-106); SODIUM (NA) 139 MEQ/L (136-145)
[2017-10-03 07:28] LABS: ALKALINE PHOSPHATASE 129 U/L (45-117); TOTAL BILIRUBIN ADULT 0.2 MG/DL (0.2-1.0); TOTAL PROTEIN 7.5 GM/DL (6.4-8.2)
[2017-10-03] MEDS: SODIUM CHLORIDE 0.9% FLUSH 10 ML FLUSH IV FLUSH SCH (09:00)
[2017-10-03] MEDS: NICOTINE 21 MG/24 HR PATCH T-DERMAL SCH (09:54)
--- NOTE | 2017-10-03 10:22 | HHI.PR ---
Subjective Remarks Follow-up suspected testicular cancer with metastases 10/03/17-patient seen and examined, states he had a fairly good night. Currently nothing by mouth pending CT-guided biopsy. Objective Vitals Vital Signs Date Time Temp Pulse Resp B/P (MAP) Pulse Ox O2 Delivery O2 Flow Rate FiO2 10/03/17 09:00 95 Room Air 10/03/17 09:00 98.2 75 20 125/89 (101) 95 10/03/17 06:23 20 10/03/17 05:15 Room Air 10/03/17 05:15 98.6 77 18 131/91 (104) 96 10/03/17 00:00 98.4 78 20 116/84 (95) 95 10/03/17 00:00 Room Air 10/02/17 20:00 99.0 75 18 114/73 (87) 94 10/02/17 20:00 Room Air 10/02/17 14:53 98.7 88 14 97/62 (74) 95 I/O 10/02/17 10/02/17 10/02/17 10/03/17 10/03/17 10/03/17 07:00 15:00 23:00 07:00 15:00 23:00 Intake Total 480 ml 240 ml Balance 480 ml 240 ml Intake Oral 480 ml 240 ml # Voids 2 # Bowel Movements 0 Result Diagram: 10/03/17 0600 10/03/17 0600 Objective Remarks GENERAL: NAD SKIN: Warm and dry. HEAD: Normocephalic. EYES: No scleral icterus. No injection or drainage. NECK: Supple, trachea midline. No JVD or lymphadenopathy. CARDIOVASCULAR: Regular rate and rhythm without murmurs, gallops, or rubs. RESPIRATORY: Breath sounds equal bilaterally. No accessory muscle use. GASTROINTESTINAL: Abdomen soft, non-tender, nondistended. MUSCULOSKELETAL: No cyanosis, or edema. BACK: Nontender without obvious deformity. No CVA tenderness. A/P Problem List: (1) Testicular malignant neoplasm ICD Code: C62.90 - Malignant neoplasm of unspecified testis, unspecified whether descended or undescended (2) Retroperitoneal lymphadenopathy ICD Code: R59.0 - Localized enlarged lymph nodes Assessment and Plan 52-year-old man with Suspected metastasis testicular cancer Although patient had a CT-guided biopsy 09/25/17, plan is to repeat CT- guided biopsy again today 10/03/17. Likely discharge after procedure Management per medical oncology Cancer pain Pain management accordingly Tobacco abuse Tobacco cessation counseling provided Nicotine patch History of asthma No exacerbation DuoNeb when necessary DVT prophylaxis: Patient ambulatory Discharge Planning Discharge patient to home Condition on discharge: Improved Regular Diet as tolerated Ad Brandi activity Rx written: See EMR Follow-up with primary care physician 1 week Follow-up With oncology per protocol Slava Glaser MD Oct 03, 2017 10:22
[2017-10-03] MEDS ORDERED: HYDR-3583 PO (10:24)
[2017-10-03] MEDS ORDERED: LIDOCAINE HCL 1% 20 ML VIAL ONE (12:10)
[2017-10-03] MEDS ORDERED: MIDAZOLAM HCL 2 MG/2 ML VIAL ONE ×2 (12:53→13:28)
--- NOTE | 2017-10-03 14:04 | PD.RAD ---
Post CT Procedure Prog Note Pre Procedure Diagnosis: (1) Testicular malignant neoplasm (2) Retroperitoneal lymphadenopathy Post Procedure Diagnosis: (1) Testicular malignant neoplasm (2) Retroperitoneal lymphadenopathy Procedure Date: Oct 03, 2017 Supervising Radiologist: Prashant Wagner Plan of Activity Patient to Unit: Nursing Unit Patient Condition: Good See PACS Report for procedural detail/treatment Biopsy Imaging Guidance: CT Side: Left Biopsy Procedure: Other Site: Retroperitoneal Specimen: Core Biopsy Prashant Wagner MD Oct 03, 2017 14:04
--- NOTE | 2017-10-03 14:44 | RADRPT ---
EXAM DATE/TIME: 10/03/2017 13:32 [facility] COMPARISON: No previous studies available for comparison. INDICATIONS : Enlarged retroperitoneal lymph nodes. SEDATION TIME: 30 minutes BIOPSY SITE: Left back MEDICATION(S): 1.) 5.5 mg midazolam (Versed) IV 2.) 250 mcg fentanyl (Sublimaze) IV DEVICE(S): 1.) 18 gauge BioPince needle 15cm 2.) 18 gauge Temno core biopsy needle 15cm MEDICAL HISTORY : Carcinoma, testicular. SURGICAL HISTORY : None. ENCOUNTER: Initial ACUITY: 1 day PAIN SCORE: 6/10 LOCATION: anterior A total of three core specimen(s) were obtained and sent to the laboratory for pathologic evaluation. PROCEDURE: 1. CT guided lymph node biopsy. 2. Conscious sedation with continuous EKG and oximetry monitoring. Prior to the procedure informed consent was obtained. Any appropriate prior imaging studies were rev iewed. Using automated exposure control and adjustment of the mA and/or kV according to patient size, radiat ion dose was kept as low as reasonably achievable to obtain optimal diagnostic quality images. DICOM format image data is available electronically for review and comparison. The site was prepped in a sterile fashion. Full sterile technique was used, including cap, mask, luisito rile gloves and gown and a large sterile sheet. Hand hygiene and 2% chlorhexidine and/or betadine/al cohol prep was utilized per protocol for cutaneous antisepsis. The skin and subcutaneous tissues wer e infiltrated with local anesthetic solution. With CT guidance the previously identified target was localized. Biopsy was performed using the presc ribed needle as above. Adequate hemostasis was obtained with compression at the puncture site. Follow-up CT scan reveals no hemorrhage. The patient tolerated the procedure well and there were no complications. The patient was returned to the Radiology Outpatient Unit in stable condition. CONCLUSION: Uncomplicated CT guided biopsy. Prashant Wagner MD on October 03, 2017 at 14:42 Board Certified Radiologist. This report was verified electronically.
[2017-10-03] MEDS ORDERED: oxyCODONE/ACETAMINOPHEN 5 MG/325 MG TAB PO PRN (15:00)
== END 2017-10-03 17:30 | disposition home or self-care (01) ==
LOC: HCIN 14:17
PROVIDERS: ADMIT Hospitalist; ATTEND Hospitalist
DX: R59.0 Localized enlarged lymph nodes (principal); C62.90 Malignant neoplasm of unspecified testis, unspecified whether descended or undescended; R10.13 Epigastric pain; G89.3 Neoplasm related pain (acute) (chronic); J45.909 Unspecified asthma, uncomplicated; F17.210 Nicotine dependence, cigarettes, uncomplicated
CPT/HCPCS: 49180; 77012; 80053; 85025; 88305; 88341; 88342; 99152; 99153; G0378; J2250; J3010